=== PATIENT | female | born 1965 | race Caucasian/White ===

== ENCOUNTER 2019-03-02 21:00 | Emergency (ER) | payer BC ==
[~2019-03-02] VITALS: Ht 172.7 cm; Wt 81.7 kg
== END 2019-03-02 22:35 | disposition home or self-care (01) ==
LOC: ER 21:00
DX: S00.83XA Contusion of other part of head, initial encounter (principal); R07.9 Chest pain, unspecified; W17.89XA Other fall from one level to another, initial encounter; Z88.8 Allergy status to other drugs, medicaments and biological substances
CPT/HCPCS: 71101; 99283-25